=== PATIENT | male | born 1995 | race Caucasian/White ===

== ENCOUNTER 2020-03-29 18:36 | Emergency (ER) | payer OTHER ==
[~2020-03-29] VITALS: Ht 175.3 cm; Wt 68.0 kg
--- NOTE | 2020-03-29 18:52 | NUR ---
patient came in to the er c/o testicular swelling x 3 days. On room air, breathing evenly and unlabored. kept comfortable, will continue to monitor accordingly.
--- NOTE | 2020-03-29 18:52 | NUR ---
urine collected and sent to lab
[2020-03-29 19:06] LABS: APPEARANCE,URINE Clear (CLEAR); BILIRUBIN,URINE Negative (NEGATIVE); BLOOD, URINE Trace-lysed Ery/uL (NEGATIVE); COLOR,URINE Yellow (YELLOW); KETONES,URINE Negative (NEGATIVE); LEUKOCYTE ESTERASE ,URINE Negative (NEGATIVE); NITRITE, URINE Negative (NEGATIVE); PH,URINE 5.5 (5.0-8.0); PROTEIN,URINE Negative (NEGATIVE); UGLUCOSE Negative (NEGATIVE); UROBILINOGEN,URINE 0.2 EU/dL (0.2)
[2020-03-29 19:13] LABS: BACTERIA,URINE Few /HPF (None Seen); RBC,URINE 0-2 /HPF (0-2); SQUAMOUS EPITHELIAL CELL,UR None Seen /HPF (None Seen); WBC,URINE NONE SEEN /HPF (0-3)
--- NOTE | 2020-03-29 19:22 | NUR ---
report given to sabine [id number] for pawel
--- NOTE | 2020-03-29 19:27 | NUR ---
paged tech for ultrasound
--- NOTE | 2020-03-29 19:40 | NUR ---
tech at bedside for US
--- NOTE | 2020-03-29 20:35 | NUR ---
Patient discharged to home in stable condition. Written and verbal after care instructions given. Patient verbalizes understanding of instruction.
[2020-03-29 20:39] VITALS: BP 116/76
== END 2020-03-29 20:39 | disposition home or self-care (01) ==
LOC: ER 18:36
DX: N50.811 Right testicular pain (principal)
CPT/HCPCS: 76870-TC; 81000-TC